=== PATIENT | female | born 1980 | race Caucasian/White ===

== ENCOUNTER 2016-12-18 12:45 | Emergency (ER) | payer OTHER, MEDICAID ==
[2016-12-18 13:00] VITALS: BP 138/80; PULSE 71; RESP 16; TEMP 98.1; O2SAT 98
[2016-12-18] MEDS ORDERED: NS 1,000 ML IV ONE (14:12)
--- NOTE | 2016-12-18 14:15 | EDPHY ---
General - History Smoking Status: Former smoker Narrative: CHIEF COMPLAINT: tape worm HISTORY OF PRESENT ILLNESS: Patient reports being diagnosed with a taper last week. This was after vague abdominal complaints and then passing tape worm in the restroom she said she was prescribed praziquantel by her primary care physician and took a 1 time dose of 6 mg on Sunday morning. Since then she has felt awkward. She has multiple difficult to describe complaints. She has been itching, felt awkward, malaise, itching and "uncomfortable on my skin." No chest pain or shortness of breath. No diarrhea or bloody stools. No emesis. She is concerned about the dosing and whether not she was treated adequately. She is also concerned about whether symptoms she is having are related to the medication or the tape worm or the expulsion of the taper. She has attempted to contact infectious disease but is not yet heard back from them. She has no other associated complaints or modifying factors. REVIEW OF SYSTEMS: Ten systems reviewed and are negative unless otherwise noted in the HPI EXAMINATION General Appearance: Alert, no distress , anxious Head: normocephalic, atraumatic Eyes: Pupils equal and round, no conjunctival pallor or injection ENT, Mouth: Mucous membranes moist Neck: Normal inspection, supple, non-tender Respiratory: no retractions or distress. Cardiovascular: Regular rate and rhythm Gastrointestinal: Abdomen is soft and nontender Back: non-tender, no bony abnormalities Neurological: A&O, nonfocal, normal gait Skin: Warm and dry , nonspecific dermatitis to the arms and legs as well as the base of the neck Extremities: Nontender, no pedal edema Psychiatric: Mood and affect normal DIFFERENTIAL DIAGNOSES: Including but not limited to tape worm treatment, adverse drug reaction, electrolyte disturbance MDM: 2:13 p.m. patient was recently treated for suspected taper of uncertain Daisy species. She was given praziquantel 600 mg 1 dose on Sunday morning. Since then she has felt very awkward, uncomfortable in her skin and very vague symptoms. She is concerned about the lack of treatment for this, whether she had the right dose of the side effects of this. She is also concerned that she would like to see a infectious disease physician for this but has been able to make an appointment. I will obtain laboratory studies to verify that she has no significant abnormalities and provide ID consult 2:45 p.m. patient declined laboratory studies. I have discussed the case with the on- call infectious disease physician Dr. Gonzalez. He agrees that the dosing was appropriate based on her weight and the description of the case. He says there is not much else to do until the species is determined based on the laboratory sample that was sent. He said that he or his partners would be happy to see her in the office for follow-up. I discussed this with the patient she is comfortable with this. I recommended Benadryl 25-50 mg every 6 hours as needed for the itching. She is to return to ER for any worsening of her symptoms. She is comfortable with this plan and discharged home in stable condition. SUPERVISION: This patient was independently evaluated without the aide of supervising physician. Infectious disease consult by telephone with Dr. Gonzalez ([facility]) Medical Decision Making: The patient was evaluated and managed by the physician executive assistant to president. I have reviewed this chart and I agree with the findings and plan of care as documented , as indicated by my signature. I am the secondary supervising physician. ( Tesha Benavides) - Objective Vital Signs: Initial Vital Signs Temperature (C) 36.7 C 12/18/16 12:57 Heart Rate 71 12/18/16 12:57 Respiratory Rate 16 12/18/16 12:57 Blood Pressure 138/80 H 12/18/16 12:57 O2 Sat (%) 98 12/18/16 12:57 O2 Delivery Mode Room Air Allergies/Adverse Reactions: tetanus toxoid, adsorbed Allergy (Severe, Verified 12/18/16 13:01) Swelling/neck,face,throat erythromycin base [Erythromycin Base] Allergy (Intermediate, Verified 12/18/16 13:01) Rash OPIATES Allergy (Intermediate, Uncoded 12/18/16 13:01) Itching Home Medications: Medication Instructions Recorded Dexamethasone [Decadron 4 MG (*)] 8 mg PO DAILY #2 tab 12/18/16 Departure - Departure Disposition: Home, Routine, Self-Care Clinical Impression: Tapeworm infection Condition: Good Instructions: Acute Rash (ED) Additional Instructions: Steroid prescription as discussed. Follow up with Infectious Disease. Benadryl 25-50 mg every 6 hours as needed for itching. Return to ER for worsening symptoms. Pepcid 1 pill twice per day. Referrals: JOSÉ ZHENG [Primary Care Provider] - As per Instructions Raza Gonzalez MD [Medical Doctor] - As per Instructions Rafaela Burnett DO [Doctor of Osteopathy] - As per Instructions Prescriptions: Dexamethasone [Decadron 4 MG (*)] 8 mg PO DAILY #2 tab
== END 2016-12-18 14:57 | disposition home or self-care (01) ==
DX: B71.9 Cestode infection, unspecified (principal); Z87.891 Personal history of nicotine dependence

== ENCOUNTER → 2017-03-14 | Outpatient (CLI) | payer OTHER, MEDICAID | LOC: FIMAGING 12:48 | PROVIDERS: ATTEND Nurse Practitioner Women's Health | DX: N63 Unspecified lump in breast (principal); Z80.3 Family history of malignant neoplasm of breast ==

== ENCOUNTER 2017-05-27 18:20 | Emergency (ER) | payer OTHER, MEDICAID ==
[2017-05-27 18:28] VITALS: BP 125/84; PULSE 78; RESP 20; TEMP 98.1; O2SAT 99
[2017-05-27] MEDS ORDERED: AMOXICILLIN/CLAVULANATE POT 875/125 MG TAB PO ONE (18:57)
--- NOTE | 2017-05-27 18:59 | EDPHY ---
H & P Stated Complaint: bit by her kitten/r index fing when he fell out of a tree and broke his leg HPI/ROS: Chief complaint: Right index finger cat bite History of present illness: This is a 37-year-old female who presents to the emergency department for evaluation and treatment of a cat bite to her right index finger. Patient adopted the cat at the end of March. The cat has been healthy the entire time she has had it. Today it fell out of a tree and broke its leg. She took it to a vet, in the car she states the cat appeared to be very uncomfortable and was very upset and bit her finger. After the vet visit the vet stated she needed to go immediately to the emergency room for evaluation of the bite. She reports minimal discomfort. No abnormal coolness or paresthesias in the finger. She is still moving the finger well. She is not up-to-date on tetanus as she cannot get them because of an allergy. - Personal History LMP (Females 10-55): 8-14 Days Ago Current Tetanus/Diphtheria Vaccine: No Tetanus Vaccine Date: allergic - Medical/Surgical History Hx Asthma: No Hx Chronic Respiratory Disease: No Hx Diabetes: No Hx Cardiac Disease: No Hx Renal Disease: No Hx Cirrhosis: No Hx Alcoholism: No Hx HIV/AIDS: No Hx Splenectomy or Spleen Trauma: No Other PMH: acne, tubal ligation, appendectomy, right arm/shoulder surgery-torn bicep tendon, 11/23/14/HERNIATED DISC NECK. - Social History Smoking Status: Current some day smoker - Physical Exam Exam: General: Alert, nontoxic Skin: Very small puncture wound with trace erythema to the distal tip of the right pointer finger. Musculoskeletal: Patient is moving the right index finger in the DIP, PIP and MCP joint well in all fitch without difficulty. Vascular: Capillary refill brisk in the right pointer finger. Neurologic: Sensation intact in the right pointer finger. Constitutional: Initial Vital Signs Temperature (C) 36.7 C 05/27/17 18:25 Heart Rate 78 05/27/17 18:25 Respiratory Rate 20 05/27/17 18:25 Blood Pressure 125/84 H 05/27/17 18:25 O2 Sat (%) 99 05/27/17 18:25 O2 Delivery Mode Room Air Allergies/Adverse Reactions: tetanus toxoid, adsorbed Allergy (Severe, Verified 05/27/17 18:22) Swelling/neck,face,throat erythromycin base [Erythromycin Base] Allergy (Intermediate, Verified 05/27/17 18:22) Rash OPIATES Allergy (Intermediate, Uncoded 12/18/16 13:01) Itching Home Medications: Medication Instructions Recorded Amoxicillin/Clavulanate Pot 875 mg PO BID 5 Days 05/27/17 [Augmentin 875 MG TAB (*)] Medical Decision Making ED Course/Re-evaluation: Patient seen under the supervision of my secondary supervising physician Dr. Jada Cole. Patient presents to the emergency department for evaluation of a cat bite to her right pointer finger. She states she came because the vet told her she had to. Her finger is neurovascularly intact. She has good musculoskeletal control. This is a domestic house cat the patient has had for over a month who has been healthy and was acting appropriately today as it was injured and lashing out and she will be able to monitor it indefinitely as it lives with her. I do not believe rabies prophylaxis is warranted. However it is a cat bite and she cannot get tetanus shots due to an allergy therefore I will place her on a course of Augmentin. Home care is discussed. She is asked to follow up with a primary care doctor for recheck. Return precautions are given. Patient voiced understanding and agreement plan. Differential Diagnosis: Included but not limited to puncture wound, foreign body contamination, deep structure injury - Data Points Medications Given: Discontinued Medications Amoxicillin/Clavulanate Potassium (Augmentin 875mg) 875 mg PO EDNOW ONE PRN Reason: Protocol Stop: 05/27/17 18:58 Last Admin: 05/27/17 19:05 Dose: 875 mg Departure - Departure Disposition: Home, Routine, Self-Care Clinical Impression: Cat bite Condition: Good Instructions: Animal Bite (ED), Acute Wounds (ED) Additional Instructions: Follow-up with your primary care doctor this week for recheck Take antibiotics as prescribed until finished even feeling better If symptoms worsen or new symptoms develop return to the emergency room for recheck Referrals: JOSÉ ZHENG [Primary Care Provider] - As per Instructions Prescriptions: Amoxicillin/Clavulanate Pot [Augmentin 875 MG TAB (*)] 875 mg PO BID 5 Days
== END 2017-05-27 19:11 | disposition home or self-care (01) ==
DX: S61.250A Open bite of right index finger without damage to nail, initial encounter (principal); F17.200 Nicotine dependence, unspecified, uncomplicated; W55.01XA Bitten by cat, initial encounter

== ENCOUNTER 2018-01-31 11:11 | Emergency (ER) | payer OTHER, MEDICAID ==
--- NOTE | 2018-01-31 12:40 | EDPHY ---
H & P Stated Complaint: uri symptoms x 1 week cervical lymphadenopathy l side Time Seen by Provider: 01/31/18 12:04 HPI/ROS: CHIEF COMPLAINT: Swollen lymph nodes HISTORY OF PRESENT ILLNESS: 37-year-old female presents with swollen lymph nodes. 1 week ago, she developed fatigue and achiness, associated with subjective fever. 3 days ago she had vertigo, which caused her to stay in bed all day. The vertigo has now resolved. She also had GI upset and decreased oral intake. However, today she awoke with swollen lymph nodes on the left side of her neck. Overall she feels much better and is no longer feverish. He no headache, ear pain or sore throat. REVIEW OF SYSTEMS: complete 10 point ROS negative except at noted in the HPI - Personal History LMP (Females 10-55): Now Current Tetanus/Diphtheria Vaccine: No Tetanus Vaccine Date: allergic - Medical/Surgical History Hx Asthma: No Hx Chronic Respiratory Disease: No Hx Diabetes: No Hx Cardiac Disease: No Hx Renal Disease: No Hx Cirrhosis: No Hx Alcoholism: No Hx HIV/AIDS: No Hx Splenectomy or Spleen Trauma: No Other PMH: acne, tubal ligation, appendectomy, right arm/shoulder surgery-torn bicep tendon, 11/23/14/HERNIATED DISC NECK. - Social History Smoking Status: Current some day smoker - Physical Exam Exam: General Appearance: Alert, pleasant Eyes: Pupils equal and round, no conjunctival pallor or injection ENT, Mouth: Mucous membranes moist Neck: Normal inspection, left posterior adenopathy Respiratory: Lungs are clear to auscultation Cardiovascular: Regular rate and rhythm Gastrointestinal: Abdomen is soft and nontender Neurological: A&O, nonfocal, normal gait Skin: Warm and dry Extremities: Abrasion left hand, no erythema or lymphangitis Psychiatric: Mood and affect normal Constitutional: Initial Vital Signs Temperature (C) 36.9 C 01/31/18 11:15 Heart Rate 72 01/31/18 11:15 Respiratory Rate 18 01/31/18 11:15 Blood Pressure 127/80 H 01/31/18 11:15 O2 Sat (%) 98 01/31/18 11:15 O2 Delivery Mode Room Air Allergies/Adverse Reactions: tetanus toxoid, adsorbed Allergy (Severe, Verified 01/31/18 11:13) Swelling/neck,face,throat erythromycin base [Erythromycin Base] Allergy (Intermediate, Verified 01/31/18 11:13) Rash OPIATES Allergy (Intermediate, Uncoded 12/18/16 13:01) Itching Home Medications: Medication Instructions Recorded NK [No Known Home Meds] 01/31/18 Medical Decision Making ED Course/Re-evaluation: Sx c/w viral syndrome, now resolving. Left cervical adenopathy present; likely viral. Has cats, but no cat scratch prior to illness. Pt will f/u PCP if adenopathy worsens. - Data Points Laboratory Results: Laboratory Results 01/31/18 12:40 Departure - Departure Disposition: Home, Routine, Self-Care Clinical Impression: Cervical lymphadenopathy, Viral syndrome Condition: Good Instructions: Lymphadenopathy (ED), Viral Syndrome (ED) Additional Instructions: Call in 2 hours for flu test results. Referrals: JOSÉ ZHENG [Primary Care Provider] - 3-4 days, if not improved
[2018-01-31 12:56] LABS: PLATELET COUNT 237 10^3/uL (150-400)
[2018-01-31 14:20] VITALS: BP 114/65
== END 2018-01-31 14:17 | disposition home or self-care (01) ==
DX: R59.0 Localized enlarged lymph nodes (principal); B34.9 Viral infection, unspecified; F17.200 Nicotine dependence, unspecified, uncomplicated